=== PATIENT | male | born 1945 | race Caucasian/White ===

== ENCOUNTER → 2023-01-18 | Outpatient (CLI) | payer MEDICARE, OTHER ==
[~2023-01-18] VITALS: Ht 180.3 cm; Wt 94.0 kg
[~2023-01-18] MED LIST: AMLO-257 PO; LOSA-382 PO; PRAV20TA4 PO; TERA5CAP77 PO
[2023-01-18 12:03] VITALS: BP 145/71; PULSE 71; RESP 22; TEMP 98; O2SAT 97
== END | disposition home or self-care (01) ==
LOC: SRCNTR 11:16
PROVIDERS: ATTEND Internal Medicine Pulmonary Disease
DX: R91.1 Solitary pulmonary nodule (principal); I10 Essential (primary) hypertension; E78.5 Hyperlipidemia, unspecified; Z79.899 Other long term (current) drug therapy
CPT/HCPCS: G0463; Z7500